=== PATIENT | male | born 1975 | race Caucasian/White ===

== ENCOUNTER 2020-08-19 20:27 | Emergency (ER) | payer BC, SELFPAY ==
[2020-08-20] MEDS ORDERED: Folic Acid 1 MG, Multivitamins, Adult 10 ML in Dextrose 5 %-0.45 % NaCl 1,000 ML IV SCH (10:45)
[2020-08-20] MEDS ORDERED: Thiamine HCl 200 MG/2 ML VIAL SLOW IVP SCH (10:45)
[2020-08-20] MEDS ORDERED: Lorazepam 2 MG/ML VIAL ONE (11:30)
== END 2020-08-20 12:55 | disposition home or self-care (01) ==
LOC: ERS 20:27
DX: F10.229 Alcohol dependence with intoxication, unspecified (principal); Y90.5 Blood alcohol level of 100-119 mg/100 ml; I10 Essential (primary) hypertension; K74.60 Unspecified cirrhosis of liver; F17.210 Nicotine dependence, cigarettes, uncomplicated; Z79.899 Other long term (current) drug therapy
CPT/HCPCS: 36415; 80307; 96365; 96375; J2060; J3411; J7042

== ENCOUNTER 2023-10-02 18:02 | Emergency (ER) | payer BC, SELFPAY ==
[2023-10-02] MEDS ORDERED: Ketorolac Tromethamine 30 MG (1 mL) VIAL ONE (18:21)
[2023-10-02 18:36] LABS: Bilirubin Negative (Negative); Blood, Urine Small (Negative); Glucose, Urine (Dipstick) Negative (Negative); Ketone, Urine Negative (Negative); Leukocyte Negative (Negative); Nitrite Negative (Negative); Protein, Urine (Dipstick) 100 mg/dL (Neg-Trace)
[2023-10-02 18:56] LABS: Clarity Clear (Clear)
[2023-10-02 19:04] LABS: Bacteria/HPF None Seen HPF (None Seen); CAUTI Indications for Culture Dysuria,urgency,freq; Squamous Epithelial None Seen HPF (0-3); WBC/HPF 0-3 HPF (0-3)
[2023-10-02 19:09] LABS: Urine Culture Reflex No No
== END 2023-10-02 19:40 | disposition home or self-care (01) ==
LOC: ERS 18:02
DX: R10.9 Unspecified abdominal pain (principal); F17.210 Nicotine dependence, cigarettes, uncomplicated; F17.290 Nicotine dependence, other tobacco product, uncomplicated; I10 Essential (primary) hypertension; K21.9 Gastro-esophageal reflux disease without esophagitis; Z79.899 Other long term (current) drug therapy
CPT/HCPCS: 81001; 96372; 99283; J1885

== ENCOUNTER 2023-10-20 17:17 | Inpatient (IN) | payer BC ==
[2023-10-20] MEDS ORDERED: Morphine 4 MG/ML VIAL ONE (17:44)
[2023-10-20] MEDS ORDERED: Ondansetron PF 4 MG/2 ML Vial ONE ×2 (17:45→23:52)
[2023-10-20 17:52] LABS: #Basophils Less than 0.03 10x3/uL (0.0-0.2); %Basophils 0.6 % (0.0-1.0); %Eosinophils 1.8 % (0.0-10.0); %Lymphocytes 27.1 % (21.0-51.0); %Monocytes 7.6 % (0.0-10.0); Hematocrit 31.5 % (42.0-52.0); Hemoglobin 10.5 g/dL (14.0-18.0); Mean Corpuscular HGB CONC 33.3 g/dL (32.0-36.0); Mean Corpuscular Hemoglobin 33.1 pg (27.0-31.0); Mean Corpuscular Volume 99.4 fL (78.0-98.0); Mean Platelet Volume 12.1 fL (7.4-10.4); Platelet Count 72 10x3/uL (130-400); RBC Distribution Width 20.1 % (11.5-14.5); Red Blood Cell (RBC) Count 3.17 mill/uL (4.70-6.10)
[2023-10-20 18:14] LABS: Anisocytosis SLIGHT = 6-15 cells HPF (0-5); Platelet Adequacy Comment Platelets Decreased; Poikilocytosis SLIGHT = 6-15 cells HPF (0-5); Polychromasia SLIGHT = 2-3 cells HPF (0-2)
[2023-10-20 18:15] LABS: ALT (SGPT) 28 U/L (8-55); AST (SGOT) 55 U/L (5-34); Albumin 2.8 g/dL (3.5-5.0); Alkaline Phosphatase 104 U/L (40-110); Anion Gap 12 mmol/L (10-20); BUN (Urea Nitrogen) 12 mg/dL (8.9-20.6); Bilirubin, Total 0.9 mg/dL (0.2-1.2); Calc. Creatinine Clearance 0 mL/min (70-130); Calcium 8.3 mg/dL (7.8-10.44); Carbon Dioxide 18 mmol/L (22-29); Estimated GFR 110; Globulin 3.3 g/dL (2.4-3.5); Glucose 115 mg/dL (70-105); Lipase 36 U/L (8-78); Potassium 4.2 mmol/L (3.5-5.1); Protein, Total 6.1 g/dL (6.0-8.3); Sodium 142 mmol/L (136-145)
[2023-10-20 18:38] LABS: Chloride 116 mmol/L (98-107)
[2023-10-20 20:38] LABS: Bacteria/HPF None Seen HPF (None Seen); Bilirubin Negative (Negative); Blood, Urine 1+ (Negative); CAUTI Indications for Culture Pelvic or flank pain; Clarity Clear (Clear); Glucose, Urine (Dipstick) Normal (Negative); Ketone, Urine Negative (Negative); Leukocyte Negative Leu/uL (Negative); Nitrite Negative (Negative); Protein, Urine (Dipstick) 50 mg/dL (Neg-Trace); RBC/HPF 0-3 HPF (0-3); Specific Gravity, Urine 1.014 (1.002-1.036); Squamous Epithelial None Seen HPF (0-3); Urobilinogen Normal mg/dL (Less than 2); WBC/HPF 0-3 HPF (0-3); pH, Urine 5.5 (5.0-9.0)
[2023-10-20 20:40] LABS: Urine Culture Reflex No No
[2023-10-20] MEDS ORDERED: Ondansetron PF 4 MG/2 ML Vial IVP PRN (23:45)
[2023-10-20] MEDS ORDERED: Ondansetron ODT 4 MG TAB SL PRN (23:45)
[2023-10-20] MEDS ORDERED: fentaNYL 50 mcg/mL 1 mL Vial ONE (23:51)
[2023-10-21] MEDS ORDERED: Labetalol HCl 100 MG/20 ML VIAL SLOW IVP PRN (00:18)
[2023-10-21] MEDS ORDERED: metroNIDAZOLE 500 MG (100 mL) BAG ONE (00:40)
[2023-10-21 01:42] VITALS: BMI 30.2
[2023-10-21] MEDS: Lactated Ringer's 1,000 ML IV SCH (02:02)
[2023-10-21] MEDS: Thiamine HCl 200 MG/2 ML VIAL SLOW IVP SCH (02:03)
[2023-10-21] MEDS: Ciprofloxacin Lactate/D5W 400 MG in Premix 1 BAG IVPB SCH (02:03)
[2023-10-21] MEDS: Pantoprazole 40 MG VIAL IVP SCH ×2 (02:03→08:14)
[2023-10-21 05:46] LABS: #Basophils Less than 0.03 10x3/uL (0.0-0.2); %Basophils 0.6 % (0.0-1.0); %Eosinophils 1.9 % (0.0-10.0); %Lymphocytes 23.2 % (21.0-51.0); %Monocytes 12.1 % (0.0-10.0); %Neutrophils 61.9 % (42.0-75.0); Hematocrit 31.7 % (42.0-52.0); Hemoglobin 10.5 g/dL (14.0-18.0); Mean Corpuscular HGB CONC 33.1 g/dL (32.0-36.0); Mean Corpuscular Hemoglobin 32.3 pg (27.0-31.0); Mean Corpuscular Volume 97.5 fL (78.0-98.0); Mean Platelet Volume 12.5 fL (7.4-10.4); Platelet Count 61 10x3/uL (130-400); RBC Distribution Width 19.5 % (11.5-14.5); Red Blood Cell (RBC) Count 3.25 mill/uL (4.70-6.10)
[2023-10-21 05:47] LABS: INR-International Normal Ratio 1.5; Prothrombin Time 17.6 sec (12.0-14.7)
[2023-10-21 05:48] LABS: PTT 40.3 sec (22.9-36.1)
[2023-10-21 05:54] LABS: ALT (SGPT) 27 U/L (8-55); AST (SGOT) 47 U/L (5-34); Albumin 2.8 g/dL (3.5-5.0); Alkaline Phosphatase 96 U/L (40-110); Anion Gap 12 mmol/L (10-20); BUN (Urea Nitrogen) 12 mg/dL (8.9-20.6); Bilirubin, Total 1.7 mg/dL (0.2-1.2); Calc. Creatinine Clearance 155 mL/min (70-130); Calcium 8.1 mg/dL (7.8-10.44); Carbon Dioxide 20 mmol/L (22-29); Chloride 113 mmol/L (98-107); Estimated GFR 106; Globulin 2.9 g/dL (2.4-3.5); Glucose 78 mg/dL (70-105); Potassium 4.1 mmol/L (3.5-5.1); Protein, Total 5.7 g/dL (6.0-8.3); Sodium 141 mmol/L (136-145)
[2023-10-21] MEDS: Lactulose 20 GM (30 mL) UDCUP PO SCH (08:14)
[2023-10-21] MEDS: Multivit, Therapeutic 1 TAB PO SCH (08:14)
[2023-10-21] MEDS: Folic Acid 1 MG TAB PO SCH (08:14)
[2023-10-21] MEDS: fentaNYL 50 mcg/mL 1 mL Vial SLOW IVP PRN (08:26)
[2023-10-21] MEDS: metroNIDAZOLE 500 MG in Premix 1 BAG IVPB SCH ×2 (08:27→16:48)
[2023-10-21] MEDS ORDERED: cefTRIAXone\\ROCEPHIN 2 GM in Sodium Chloride 0.9% 100 ML IVPB SCH (12:00)
[2023-10-21] MEDS ORDERED: diphenhydrAMINE 50 MG/ML VIAL IVP PRN (14:10)
[2023-10-21] MEDS: cefTRIAXone\\ROCEPHIN 2 GM in Sodium Chloride 0.9% 100 ML IVPB SCH (14:23)
[2023-10-21] MEDS: Acetaminophen 325 MG TAB PO PRN (16:59)
[2023-10-21] MEDS ORDERED: fentaNYL 50 mcg/mL 1 mL Vial SLOW IVP PRN (17:51)
[2023-10-21] MEDS: Aripiprazole 10 MG TAB PO SCH (20:25)
[2023-10-21] MEDS: traZODone HCl 50 MG TAB PO PRN (20:25)
[2023-10-21] MEDS: Citalopram 20 MG TAB PO SCH (20:25)
[2023-10-22 05:56] LABS: #Basophils Less than 0.03 10x3/uL (0.0-0.2); %Basophils 0.8 % (0.0-1.0); %Eosinophils 3.7 % (0.0-10.0); %Lymphocytes 28.9 % (21.0-51.0); %Monocytes 9.9 % (0.0-10.0); %Neutrophils 56.3 % (42.0-75.0); Hematocrit 31.5 % (42.0-52.0); Hemoglobin 10.5 g/dL (14.0-18.0); Mean Corpuscular HGB CONC 33.3 g/dL (32.0-36.0); Mean Corpuscular Hemoglobin 33.2 pg (27.0-31.0); Mean Corpuscular Volume 99.7 fL (78.0-98.0); Mean Platelet Volume 11.7 fL (7.4-10.4); Platelet Count 54 10x3/uL (130-400); RBC Distribution Width 18.8 % (11.5-14.5); Red Blood Cell (RBC) Count 3.16 mill/uL (4.70-6.10)
[2023-10-22 06:08] LABS: ALT (SGPT) 24 U/L (8-55); AST (SGOT) 43 U/L (5-34); Albumin 2.7 g/dL (3.5-5.0); Alkaline Phosphatase 106 U/L (40-110); Anion Gap 12 mmol/L (10-20); BUN (Urea Nitrogen) 12 mg/dL (8.9-20.6); Bilirubin, Total 1.4 mg/dL (0.2-1.2); Calc. Creatinine Clearance 153 mL/min (70-130); Calcium 8.2 mg/dL (7.8-10.44); Carbon Dioxide 20 mmol/L (22-29); Chloride 112 mmol/L (98-107); Estimated GFR 106; Globulin 2.9 g/dL (2.4-3.5); Glucose 82 mg/dL (70-105); Potassium 3.7 mmol/L (3.5-5.1); Protein, Total 5.6 g/dL (6.0-8.3); Sodium 140 mmol/L (136-145)
[2023-10-22] MEDS ORDERED: Acetaminophen 500 MG TAB PO PRN (06:41)
[2023-10-22] MEDS: Lactated Ringer's 1,000 ML IV SCH (08:40)
[2023-10-22 08:41] VITALS: BP 147/72; TEMP 98.1
[2023-10-22] MEDS ORDERED: Sincalide 5 MCG VIAL ONE (10:57)
[2023-10-22] MEDS ORDERED: Sterile Water 10 ML ONE (10:58)
[2023-10-22] MEDS ORDERED: Bacteriostatic Normal Saline 30 ML VIAL ONE (10:58)
[2023-10-22] MEDS: Aripiprazole 10 MG TAB PO SCH (12:01)
[2023-10-22] MEDS: Citalopram 20 MG TAB PO SCH (12:02)
[2023-10-23] MEDS ORDERED: Thiamine 100 MG TAB PO SCH (21:00)
== END 2023-10-22 15:43 | disposition home or self-care (01) | DRG 433 ==
LOC: ERS 17:17 → INTOOBSV 10-21 01:19 → T4-B 10-21 01:19 → OBSVTOIN 10-22 07:54
PROVIDERS: ADMIT Student in an Organized Health Care Education/Training Program; ATTEND Student in an Organized Health Care Education/Training Program
DX: K70.30 Alcoholic cirrhosis of liver without ascites (principal); D61.818 Other pancytopenia; K76.6 Portal hypertension; K80.20 Calculus of gallbladder without cholecystitis without obstruction; N20.0 Calculus of kidney; F04 Amnestic disorder due to known physiological condition; K21.9 Gastro-esophageal reflux disease without esophagitis; I10 Essential (primary) hypertension; F39 Unspecified mood [affective] disorder; F41.9 Anxiety disorder, unspecified; F32.A Depression, unspecified; F17.210 Nicotine dependence, cigarettes, uncomplicated; Z90.49 Acquired absence of other specified parts of digestive tract; Z98.890 Other specified postprocedural states; Z83.3 Family history of diabetes mellitus; Z79.899 Other long term (current) drug therapy
CPT/HCPCS: 36415; 74176; 76705; 78227; 80053; 81001; 83690; 85025; 85610; 85730; 96361; 96365; 96367; 96375; 96376; A9537; C9113; G0378; J0696; J0744; J2270; J2405; J2805; J3010; J3411; J3490; J7120

== ENCOUNTER 2023-11-04 18:34 | Emergency (ER) | payer BC ==
[2023-11-04 19:18] LABS: #Basophils 0.04 10x3/uL (0.0-0.2); %Basophils 0.7 % (0.0-1.0); %Eosinophils 2.5 % (0.0-10.0); %Lymphocytes 17.6 % (21.0-51.0); %Monocytes 9.3 % (0.0-10.0); %Neutrophils 69.7 % (42.0-75.0); Hematocrit 37.2 % (42.0-52.0); Hemoglobin 12.7 g/dL (14.0-18.0); Mean Corpuscular HGB CONC 34.1 g/dL (32.0-36.0); Mean Corpuscular Hemoglobin 31.5 pg (27.0-31.0); Mean Corpuscular Volume 92.3 fL (78.0-98.0); Mean Platelet Volume 10.9 fL (7.4-10.4); Platelet Count 87 10x3/uL (130-400); RBC Distribution Width 16.2 % (11.5-14.5); Red Blood Cell (RBC) Count 4.03 mill/uL (4.70-6.10)
[2023-11-04 19:36] LABS: ALT (SGPT) 26 U/L (8-55); AST (SGOT) 56 U/L (5-34); Albumin 3.2 g/dL (3.5-5.0); Alkaline Phosphatase 103 U/L (40-110); Anion Gap 10 mmol/L (10-20); BUN (Urea Nitrogen) 15 mg/dL (8.9-20.6); Bilirubin, Total 3.7 mg/dL (0.2-1.2); Calc. Creatinine Clearance 0 mL/min (70-130); Carbon Dioxide 18 mmol/L (22-29); Chloride 106 mmol/L (98-107); Estimated GFR 100; Globulin 3.5 g/dL (2.4-3.5); Glucose 136 mg/dL (70-105); Lipase 32 U/L (8-78); Potassium 3.3 mmol/L (3.5-5.1); Protein, Total 6.7 g/dL (6.0-8.3); Sodium 131 mmol/L (136-145)
[2023-11-04 20:39] LABS: Bacteria/HPF None Seen HPF (None Seen); Bilirubin Negative (Negative); Blood, Urine 2+ (Negative); CAUTI Indications for Culture Pelvic or flank pain; Clarity Clear (Clear); Glucose, Urine (Dipstick) Normal (Negative); Ketone, Urine Negative (Negative); Leukocyte 25 Leu/uL (Negative); Mucous/LPF Rare LPF (<2+); Nitrite Negative (Negative); Protein, Urine (Dipstick) 300 mg/dL (Neg-Trace); Specific Gravity, Urine 1.028 (1.002-1.036); Squamous Epithelial 0-3 HPF (0-3); Urobilinogen 12 mg/dL (Less than 2)
[2023-11-04 20:40] LABS: Sperm/HPF 1+ HPF (None Seen)
[2023-11-04 20:42] LABS: Urine Culture Reflex Yes Yes
[2023-11-04 22:03] LABS: INR-International Normal Ratio 1.5; Prothrombin Time 18.3 sec (12.0-14.7)
[2023-11-04 22:04] LABS: PTT 40.8 sec (22.9-36.1)
[2023-11-04] MEDS ORDERED: Ketorolac Tromethamine 30 MG (1 mL) VIAL ONE (22:44)
[2023-11-04] MEDS ORDERED: Potassium Chloride 20 MEQ TAB ONE (22:44)
== END 2023-11-05 00:06 | disposition home or self-care (01) ==
LOC: ERS 18:34
DX: N39.0 Urinary tract infection, site not specified (principal); E86.0 Dehydration; E87.6 Hypokalemia; I10 Essential (primary) hypertension; F17.210 Nicotine dependence, cigarettes, uncomplicated
CPT/HCPCS: 36415; 76705; 80053; 81001; 82550; 83690; 85025; 85610; 85730; 87086; 96372; J1885

== ENCOUNTER 2023-11-06 18:36 | Emergency (ER) | payer BC | END 2023-11-06 19:18 | disposition home or self-care (01) | LOC: ERS 18:36 | DX: Z02.79 Encounter for issue of other medical certificate (principal); N39.0 Urinary tract infection, site not specified; I10 Essential (primary) hypertension; F17.210 Nicotine dependence, cigarettes, uncomplicated; F17.290 Nicotine dependence, other tobacco product, uncomplicated | CPT/HCPCS: 99282 ==

== ENCOUNTER 2023-11-10 19:48 | Emergency (ER) | payer BC ==
[~2023-11-10 19:48] MED LIST: Iopamidol-370 76% 500 ML MDV (1 ML CHARGE) ONE
[2023-11-10] MEDS ORDERED: Ondansetron ODT 4 MG TAB ONE (22:24)
[2023-11-10 22:52] LABS: #Basophils Less than 0.03 10x3/uL (0.0-0.2); %Basophils 0.4 % (0.0-1.0); %Eosinophils 1.2 % (0.0-10.0); %Lymphocytes 15.1 % (21.0-51.0); %Monocytes 8.5 % (0.0-10.0); %Neutrophils 74.6 % (42.0-75.0); Hematocrit 39.8 % (42.0-52.0); Mean Corpuscular HGB CONC 35.2 g/dL (32.0-36.0); Mean Corpuscular Volume 91.1 fL (78.0-98.0); Platelet Count 105 10x3/uL (130-400); RBC Distribution Width 16.7 % (11.5-14.5); Red Blood Cell (RBC) Count 4.37 mill/uL (4.70-6.10)
[2023-11-10 23:05] LABS: ALT (SGPT) 24 U/L (8-55); AST (SGOT) 36 U/L (5-34); Albumin 3.5 g/dL (3.5-5.0); Alkaline Phosphatase 93 U/L (40-110); Anion Gap 14 mmol/L (10-20); BUN (Urea Nitrogen) 17 mg/dL (8.9-20.6); Bilirubin, Total 1.9 mg/dL (0.2-1.2); Calc. Creatinine Clearance 0 mL/min (70-130); Calcium 9.1 mg/dL (7.8-10.44); Carbon Dioxide 19 mmol/L (22-29); Chloride 110 mmol/L (98-107); Estimated GFR 92; Globulin 3.5 g/dL (2.4-3.5); Glucose 99 mg/dL (70-105); Potassium 3.6 mmol/L (3.5-5.1); Sodium 139 mmol/L (136-145)
[2023-11-11 01:36] LABS: Bacteria/HPF None Seen HPF (None Seen); Bilirubin Negative (Negative); Blood, Urine Trace (Negative); CAUTI Indications for Culture Dysuria,urgency,freq; Clarity Clear (Clear); Glucose, Urine (Dipstick) Normal (Negative); Ketone, Urine Negative (Negative); Leukocyte Negative Leu/uL (Negative); Nitrite Negative (Negative); Protein, Urine (Dipstick) 100 mg/dL (Neg-Trace); Squamous Epithelial 0-3 HPF (0-3); WBC/HPF 0-3 HPF (0-3)
[2023-11-11 01:38] LABS: Specific Gravity, Urine Greater than 1.060 (1.002-1.036)
[2023-11-11 01:39] LABS: Urine Culture Reflex No No
== END 2023-11-11 02:00 | disposition home or self-care (01) ==
LOC: ERS 19:48
DX: K70.30 Alcoholic cirrhosis of liver without ascites (principal); I10 Essential (primary) hypertension; F17.210 Nicotine dependence, cigarettes, uncomplicated; F17.290 Nicotine dependence, other tobacco product, uncomplicated
CPT/HCPCS: 74177; 76705; 80053; 81001; 83690; 85025; Q0162; Q9967